=== PATIENT | female | born 1990 | race Two or more races ===

== ENCOUNTER 2017-04-20 01:34 | Emergency (ER) | payer MEDICAID ==
--- NOTE | 2017-04-20 02:20 | ED Physician Chart ---
Chief Complaint/HPI - Patient Information Date Seen:: 04/20/17 Time Seen:: 01:55 Chief Complaint:: Palpitation History of Present Illness:: Pt has had palpitation about 30 minutes after ingesting marijuana at about midnight. Pt denies any other illicit drug use. No chest pain or definite dyspnea. No lightheadedness. No syncope. Pt has had recurrent N/V with vomitus consists of gastric content. No hematemesis. Last BM earlier this morning that was normal in color and consistency. No hematochezia or melena. No abdominal pain. No other bodily pain or discomfort. Allergies:: Allergies Allergy/AdvReac Type Severity Reaction Status Date / Time No Known Allergies Allergy Verified 04/20/17 01:45 Vitals:: Vital Signs - 8 hr 04/20/17 01:34 Temp 98.0 F HR 130 RR 20 BP 134/78 O2 Sat % 99 Historian:: Patient Family MD/PCP:: unknown LMP:: 03/29/17 Review:: Nurse's Note Reviewed Review of Systems - Review of Systems General/Constitutional: No fever, No chills, No weight loss, No weakness, No diaphoresis, No edema, No loss of appetite Skin: No skin lesions, No rash, No bruising Head: No headache, No light-headedness Eyes: No loss of vision, No pain, No diplopia ENT: No earache, No nasal drainage, No sore throat Neck: No neck pain, No swelling, No stiffness, No mass noted Cardio Vascular: No chest pain, Palpitations, No edema Pulmonary: No SOB, No cough, No wheezing GI: Nausea, Vomiting (transient with vomitus consists of gastric content), Diarrhea (Transient nonbloody loose stool earlier this morning. ), No pain, No melena, No hematochezia, No hematemesis G/U: No dysuria, No frequency, No hematuria De Icer Element Winder: No vaginal discharge, No abnormal vaginal bleed Musculoskeletal: No bone or joint pain, No back pain, No muscle pain Endocrine: No polyuria, No polydipsia Psychiatric: No prior psych history Hematopoietic: No bruising, No lymphadenopathy Allergic/Immuno: No urticaria, No angioedema Neurological: No syncope, No focal symptoms, No weakness, No paresthesia, No headache, No dizziness, No confusion Past Medical History - Past Medical History Past Medical History: No significant medical hx Family History: None Social History: Non Smoker, Alcohol (occasional use.), Illicit Drug Use (with marijuana use only. Pt has been informed about health risks associated with marijuana use and has been advised to quit. Pt acknowledges understanding.), , Employed, Other (lives with her .) Employment:: administrative accountant. Surgical History: None Psychiatricy History: None Medication: None Family Medical History - Family Member Mother History Unknown: Yes Name:: Teena Herron Ethnicity: Living Status: Still Living Hx Family Cancer: No Hx Family Coronary Artery Disease: No Hx Family Congestive Heart Failure: No Hx Family Hypertension: Yes Hx Family Stroke: No Hx Family Diabetes: No Hx Family Seizures: No Hx Family Dementia: No Hx Family AIDS: No Hx Family HIV: No Hx Family COPD: No Hx Family Hepatitis: No Hx Family Psychiatric Problems: No Hx Family Tuberculosis: No Physical Exam - Physical Examination General/Constitutional: Awake, Well-developed, well-nourished, Alert, No distress, GCS 15, Non-toxic appearing, Ambulatory Other Gen/Cons comments:: Breathes comfortably, speaks clearly, and interacts normally. Head: Atraumatic Eyes: Lids, conjuctiva normal, PERRL, EOMI Skin: Nl inspection, No rash, No skin lesions, No ecchymosis, No lymphadenopathy ENMT: External ears, nose nl, Nasal exam nl, Lips, teeth, gums nl, Oropharynx nl Other ENMT comments:: Mucous membrane slightly dry. Neck: Nontender, Full ROM w/o pain, No JVD, No nuchal rigidity, No mass, No stridor Respiratory: Nl effort/Exclusion, Clear to Auscultation, No Wheeze/Rhonchi/Rales Cardio Vascular: No murmur, gallop, rubs Other Cardio Vascular comments:: Regular rhythm with mild tachycardia. GI: No tenderness/rebounding/guarding, No organomegaly, Normal BS's, Nondistended Other GI comments:: Obese but soft. Extremities: No tenderness or effusion, Full ROM, normal strength in all extremities, No edema, Normal digits & nails Neuro/Psych: Alert/oriented (oriented x 3), Mood normal, Normal gait, No focal deficits Labs/Radiology/EKG Results - Lab Results Results: Laboratory Tests 04/20/17 04/20/17 04/20/17 02:25 02:25 02:25 WBC 12.7 H RBC 4.66 Hgb 13.5 Hct 39.3 MCV 84.5 MCH 28.9 MCHC Differential 34.2 RDW 13.3 Plt Count 277 MPV 8.4 Neutrophils % 65.3 Lymphocytes % 27.9 Monocytes % 5.8 Eosinophils % 0.7 Basophils % 0.3 PT 9.5 INR 0.91 PTT (Actin FS) 24.5 L Sodium 132 L Potassium 3.9 Chloride 103 Carbon Dioxide 23.8 Anion Gap 9.1 BUN 16 Creatinine 1.0 Est GFR ( Amer) > 60.0 Est GFR (Non-Af Amer) > 60.0 BUN/Creatinine Ratio 16.0 Glucose 128 H Whole Bld Lactic Acid Calcium 9.2 Total Bilirubin 0.3 AST 19 ALT 39 Alkaline Phosphatase 69 Creatine Kinase 73 Troponin I Total Protein 7.3 Albumin 4.0 Globulin 3.3 Albumin/Globulin Ratio 1.2 Urine Test Urine Opiates Screen Urine Methadone Screen Ur Barbiturates Screen Ur Tricyclics Screen Ur Phencyclidine Scrn Amphetamines Screen U Methamphetamines Scrn U Benzodiazepines Scrn U Cocaine Metab Screen U Cannabinoids Screen 04/20/17 04/20/17 04/20/17 02:25 02:25 02:30 WBC RBC Hgb Hct MCV MCH MCHC Differential RDW Plt Count MPV Neutrophils % Lymphocytes % Monocytes % Eosinophils % Basophils % PT INR PTT (Actin FS) Sodium Potassium Chloride Carbon Dioxide Anion Gap BUN Creatinine Est GFR ( Amer) Est GFR (Non-Af Amer) BUN/Creatinine Ratio Glucose Whole Bld Lactic Acid 1.27 Calcium Total Bilirubin AST ALT Alkaline Phosphatase Creatine Kinase Troponin I < 0.01 L Total Protein Albumin Globulin Albumin/Globulin Ratio Urine Test NEGATIVE Urine Opiates Screen Urine Methadone Screen Ur Barbiturates Screen Ur Tricyclics Screen Ur Phencyclidine Scrn Amphetamines Screen U Methamphetamines Scrn U Benzodiazepines Scrn U Cocaine Metab Screen U Cannabinoids Screen 04/20/17 02:30 WBC RBC Hgb Hct MCV MCH MCHC Differential RDW Plt Count MPV Neutrophils % Lymphocytes % Monocytes % Eosinophils % Basophils % PT INR PTT (Actin FS) Sodium Potassium Chloride Carbon Dioxide Anion Gap BUN Creatinine Est GFR ( Amer) Est GFR (Non-Af Amer) BUN/Creatinine Ratio Glucose Whole Bld Lactic Acid Calcium Total Bilirubin AST ALT Alkaline Phosphatase Creatine Kinase Troponin I Total Protein Albumin Globulin Albumin/Globulin Ratio Urine Test Urine Opiates Screen NEGATIVE Urine Methadone Screen NEGATIVE Ur Barbiturates Screen NEGATIVE Ur Tricyclics Screen NEGATIVE Ur Phencyclidine Scrn NEGATIVE Amphetamines Screen NEGATIVE U Methamphetamines Scrn NEGATIVE U Benzodiazepines Scrn NEGATIVE U Cocaine Metab Screen NEGATIVE U Cannabinoids Screen POSITIVE H - EKG Interpretations EKG Time:: 02:28 Rate & Rhythm: Sinus tachycardia with VR 108 Comments:: No acute ischemic changes. laboratory monitor: Sinus tachycardia with VR 106. No ectopy. ED Septic Shock - . Is Septic Shock (SBP<90, OR Lactate>4 mmol\L) present?: No - <6hrs of presentation: Vital Signs: Vital Signs - 8 hr 04/20/17 01:34 Temp 98.0 F HR 130 RR 20 BP 134/78 O2 Sat % 99 Reassessment (Disposition) - Reassessment Reassessment:: 0350 Pt feels better. No recurrent N/V. No palpitation. Lab findings have been reviewed with pt. Management plan has been discussed. Pt is continued to be hydrated until heart rate is normalized. 0445 Pt continues to improve. Her HR is normalized to 93. Pt feels well without abdominal pain or discomfort. No N/V/D. No lightheadedness. Pt requests to go home now and does not want further observation/management in hospital. Aftercare instructions have been given. Reassessment Condition:: Improved - Diagnosis Diagnosis:: Transient nausea/vomiting associated with palpitation due to cannabinoid effect. Stable and currently asymptomatic. - Aftercare/Follow up Instructions Notes:: Bedrest today. Avoid marijuana use. Push clear liquid. Advance diet as tolerated starting this evening. N/V/D instructions given. F/U with Dr. Stoddard or PCP of pt's choice in one day for recheck with repeat lab studies: CBC, BMP. Return to ER immediately if condition worsens or if any further questions/problems. Medication Prescribed:: None - Patient Disposition Discharge/Transfer:: Home Time:: 04:50 Condition at Disposition:: Stable, Improved ED Discharge Plan - Patient Disposition Admit/Discharge/Transfer: PT DISCHARGED HOME Condition at Disposition: Improved Instructions: Substance Abuse-Brief Additional Instructions: DRINK PLENTY OF FLUIDS. KEEP WELL HYDRATED. REST. FOLLOW UP WITH YOUR DOCTOR FOR RE-CHECK. AND POSSIBLE COUNSELING FOR DRUG ABUSE. RETURN TO ER IF CONDITION WORSEN.
[2017-04-20 02:38] LABS: % BASOPHILS 0.3 % (0.0-2.0); % EOSINOPHILS 0.7 % (0.0-5.0); % LYMPHOCYTES 27.9 % (20.0-50.0); % MONOCYTES 5.8 % (2.0-10.0); % NEUTROPHILS 65.3 % (40.0-80.0); HEMATOCRIT 39.3 % (35.0-45.0); HEMOGLOBIN 13.5 gm/dL (11.7-15.5); MEAN CELL VOLUME 84.5 fl (81-100); MEAN CORPUSCULAR HEMOGLOBIN 28.9 pg (27.0-31.0); MEAN CORPUSCULAR HGB CONC 34.2 pg (28.0-36.0); MEAN PLATELET VOLUME 8.4 fl; NEUTROPHILE ABSOLUTE 8.4 Th/cmm (1.8-8.0); PLATELET COUNT 277 Th/cmm (150-400); RED BLOOD COUNT 4.66 Mil/cmm (3.80-5.10); RED CELL DISTRIBUTION WIDTH 13.3 % (11.5-20.0)
[2017-04-20 02:41] LABS: WHITE BLOOD COUNT 12.7 Th/cmm (4.8-10.8)
[2017-04-20] MEDS ORDERED: Sodium Chloride 0.9% 1,000 ML IV ONE ×2 (02:46→03:55)
[2017-04-20 02:53] LABS: ALB/GLOB RATIO 1.2 (1.0-1.8); ALKALINE PHOSPHATASE 69 U/L (34-104); ANION GAP 9.1 (7.0-16.0); BILIRUBIN,TOTAL 0.3 mg/dL (0.3-1.0); BUN - UREA NITROGEN 16 mg/dL (7-25); CALCIUM SERUM 9.2 mg/dL (8.6-10.3); CARBON DIOXIDE 23.8 mEq/L (21.0-31.0); CHLORIDE 103 mEq/L (98-107); GLUCOSE 128 mg/dL (70-105); POTASSIUM SERUM 3.9 mEq/L (3.5-5.1); SGOT 19 U/L (13-39); SGPT/ALT 39 U/L (7-52); SODIUM SERUM 132 mEq/L (136-145)
[2017-04-20 02:55] LABS: INR 0.91 (0.5-1.4); PROTHROMBIN TIME (TEST) 9.5 SECONDS (9.5-11.5)
[2017-04-20 03:25] LABS: AMPHETAMINE URINE NEGATIVE (NEGATIVE); BARBITURATES URINE NEGATIVE (NEGATIVE); METHADONE URINE NEGATIVE (NEGATIVE)
== END 2017-04-20 04:45 | disposition home or self-care (01) ==
LOC: ER 01:34
DX: R00.2 Palpitations (principal); F12.10 Cannabis abuse, uncomplicated
CPT/HCPCS: 99285; 96361; 96374; 93005; 84484; 36415; 83605; 80307; 85025; 85610; 82550; 81025; 80053; J2405; J7040; J7030